=== PATIENT | male | born 1950 | race Caucasian/White ===

== ENCOUNTER → 2023-04-25 13:58 | Outpatient (REF) | payer MEDICARE, OTHER, SELFPAY | LOC: RAD 13:58 | PROVIDERS: ATTENDING PHYSICIAN Surgery Vascular Surgery; FAMILY PHYSICIAN Internal Medicine | DX: I73.9 Peripheral vascular disease, unspecified (principal) | CPT/HCPCS: 93922; 93925 ==

== ENCOUNTER 2023-05-24 06:22 | Day surgery (SDC) | payer MEDICARE, OTHER, SELFPAY ==
[2023-05-20 09:46] VITALS: BMI 32.8
--- NOTE | 2023-05-20 11:49 | PTCARENOTE ---
Sissy at 's office was notified of WBC 15.9 collected today.
[2023-05-24] VITALS (25 sets, daily range): BP systolic 130–186; BP diastolic 44–75
[2023-05-24 07:16] LABS: Glucose - Point of Care 73 mg/dl (70-99)
[2023-05-24] MEDS: NSS 324 ML IV (07:16)
--- NOTE | 2023-05-24 07:20 | W.SUR.PREOP ---
Pre-Operative Surgical Note
-
I have examined this patient prior to the performance of the scheduled procedure.
The patient's condition is unchanged from the time of the current History and
Physical and the patient is able to undergo the scheduled procedure.
--- NOTE | 2023-05-24 08:42 | OR.RPT ---
Operative Report
Operative Report
Date of Operation: 05/24/2023
Pre Op Diagnosis:
1.) Peripheral arterial occlusive disease
2.) Suspected high-grade right superficial femoral artery in-stent restenosis on surveillance duplex imaging
Post Op Diagnosis:
1.) Peripheral arterial occlusive disease
2.) Suspected high-grade right superficial femoral artery in-stent restenosis on surveillance duplex imaging
Procedure:
1.) Drug-coated balloon angioplasty to right superficial femoral artery in-stent restenosis (6 mm x 40 mm iNPACT DCB)
2.) Drug-coated balloon angioplasty to high-grade stenosis right below-knee popliteal artery (5 mm x 40 mm iNPACT DCB)
3.) Diagnostic aortobiiliac arteriogram
4.) Diagnostic right lower extremity arteriogram
5.) Ultrasound-guided percutaneous access to the left common femoral artery
6.) ProGlide closure to left common femoral artery access
Surgeon: Kelby Barrientos III, MD
Real Estate Agency Principal: Manolo Singletary MD PGY-1
Fluoroscopy:
14.5 minutes
299 mGy
81.15 DAP
Anesthesia: Sedation with local
Complications: None
Estimated Blood Loss: 10 cc
History and Indications for Procedure: 73-year-old male with known peripheral arterial occlusive disease. He had elevated velocities in the right superficial femoral artery stent on surveillance duplex imaging suggesting the presence of a
high-grade stenosis.
Procedure in Detail: Nick Muniz was correctly identified and placed supine on the operating table. After adequate induction of anesthesia the bilateral groins were prepped and draped in the usual sterile fashion. A timeout was performed with the
nursing and anesthesia staff confirming the patient's identity as well as the nature and laterality of the procedure.
The left common femoral artery was identified under ultrasound guidance. The artery was patent. The superior and inferior aspects of the femoral head were identified with radiographic guidance and marked at the skin level. The proposed puncture site
was infiltrated with local anesthesia. We saved a copy of the ultrasound image to the medical record. Under ultrasound guidance we accessed the left common femoral artery with a micropuncture needle and upsized to a 5 Fr sheath over a Z Planeson wire.
The wire and a Shepherds hook flush catheter were advanced into the distal abdominal aorta and a diagnostic aorto-biiliac arteriogram was performed:
AORTO-ILIAC ARTERIOGRAM:
Aorta: Patent with no stenosis identified
Right common iliac artery: Patent with no stenosis identified
Right external iliac artery: Patent with no stenosis identified
Left common iliac artery: Patent with no stenosis identified
Left external iliac artery: Patent with no stenosis identified
Under roadmap guidance using a Glidewire and the Shepherds hook catheter we selected the right common iliac artery and then the external iliac artery. A catheter was tracked up and over the aortic bifurcation and placed in the distal external iliac
artery. A diagnostic right lower extremity arteriogram was then performed which demonstrated the following:
RIGHT LOWER EXTREMITY:
Common femoral artery: Patent with no stenosis identified
Profunda femoral artery: Patent with no stenosis identified
Superficial femoral artery: Patent. Superficial femoral artery stent with diffuse moderate to high-grade in-stent stenosis identified. Mid/distal twenty-nine palms superficial femoral artery with scattered mild disease.
Popliteal artery: Patent above and behind the knee with mild scattered stenosis identified. Focal moderate to high-grade stenosis below the knee.
Tibial artery runoff was imaged to the distal calf. Anterior tibial artery patent with diffuse disease identified. Tibioperoneal trunk and peroneal artery patent. Posterior tibial artery occluded.
ENDOVASCULAR INTERVENTION: Systemic heparin was administered. Exchanged out for a 6 Fr 45 cm sheath over a Storq wire. Selected the right superficial femoral artery under roadmap guidance with Quickcross catheter and glidewire. The in-stent stenosis
was crossed with a Quickcross and Glidewire. Exchanged out for a Storq wire. A 6 mm x 40 mm drug coated angioplasty balloon was placed across the in-stent stenosis under roadmap guidance. The balloon was inflated to nominal pressure, held in place
for 3 minutes and then deflated and removed over the wire. Subsequent arteriogram demonstrated an excellent technical result with a widely patent stent and no significant residual stenosis identified.
We then focused my attention on the below-knee popliteal artery stenosis. The stenosis was crossed with a Quickcross and Glidewire. The wire exchanged out for a Storq wire. A 5 mm x 40 mm drug-coated angioplasty balloon was then placed across the
below-knee popliteal artery stenosis under roadmap guidance. The balloon was inflated to nominal pressure, held in place for 3 minutes and then deflated and removed over the wire. Subsequent arteriogram demonstrated an excellent technical result
with a widely patent below-knee popliteal artery and only a mild smooth residual stenosis identified.
Satisfied with this result we concluded the procedure. The sheath tip was pulled back into the left external iliac artery. Protamine was administered. A Pro-glide closure device was used to close the left femoral artery access.
The patient tolerated the procedure well and was taken to the recovery area in stable condition.
Attestation: I was present and responsible for the entire procedure.
Signed:
Kelby Barrientos III, MD
[facility]
[phone] (hreq)
--- NOTE | 2023-05-24 08:53 | W.IMMPOSTOP ---
Surgical Immed Post Op Note
-
Primary Surgeon: Kelby Barrientos III, MD
Assisting Surgeon: Manolo Singletary MD
Pre-op Diagnosis: RLE PAD
Post-op Diagnosis: RLE PAD
Procedure Performed: RLE angiogram, R SFA balloon angioplasty, R Below-knee popliteal artery balloon angioplasty
Anesthesia Type: Sedation
Specimen / Cultures: NA
Estimated Blood Loss: 2cc
Complications: NA
Operative Findings:
Pre-existing SFA stent with in-stent restenosis. 6Fr drug-coated balloon was used to expand the area of restenosis. Similarly, distal below knee pop with evidence of moderate-high grade disease. This area was also expanded with a drug-coated
balloon.
[2023-05-24 08:59] LABS: Glucose - Point of Care 78 mg/dl (70-99)
[2023-05-24] MEDS: NSS 1000 IV (10:23)
[2023-05-24 10:55] LABS: ACT-LR - POC 265 Seconds (116-155)
--- NOTE | 2023-05-24 12:38 | PTCARENOTE ---
Patients dressing showing a slight ooze on the bottom of dressing. NETWORK PROJECT MANAGER Ni Means made aware. Ni came by and inspected dressing. She decided to delay discharge by 1 hour. Dressing changed and reinforced with extra 4x4 sponge.
[2023-05-24 13:09] LABS: Glucose - Point of Care 151 mg/dl (70-99)
[2023-05-24] MEDS: NOVOLOG vial 1 UNITS SC (13:18)
[2023-05-24 13:52] LABS: Glucose - Point of Care 160 mg/dl (70-99)
== END 2023-05-24 14:00 | disposition home or self-care (01) ==
LOC: CATH 06:22
PROVIDERS: ATTENDING PHYSICIAN Surgery Vascular Surgery; FAMILY PHYSICIAN Internal Medicine
DX: I70.201 Unspecified atherosclerosis of native arteries of extremities, right leg (principal); Z95.820 Peripheral vascular angioplasty status with implants and grafts; T82.856A Stenosis of peripheral vascular stent, initial encounter; E11.9 Type 2 diabetes mellitus without complications; I10 Essential (primary) hypertension; E78.5 Hyperlipidemia, unspecified; E11.40 Type 2 diabetes mellitus with diabetic neuropathy, unspecified
CPT/HCPCS: 37224; 75625; 75716; 76937; 82962; C1760; C1769; C1894; C2623; Q9967

== ENCOUNTER → 2023-06-28 10:15 | Outpatient (REF) | payer MEDICARE, OTHER, SELFPAY | LOC: RAD 10:15 | PROVIDERS: ATTENDING PHYSICIAN Surgery Vascular Surgery; FAMILY PHYSICIAN Internal Medicine | DX: I73.9 Peripheral vascular disease, unspecified (principal) | CPT/HCPCS: 93922; 93925 ==

== ENCOUNTER → 2023-07-07 06:58 | Outpatient (REF) | payer MEDICARE, OTHER, SELFPAY ==
[2023-07-07 08:41] LABS: % Basophils 0.5 % (0-2); % Eosinophils 1.1 % (0-6); % Immature Granulocytes 0.2 % (0-0.5); % Monocytes 5.2 % (1.7-9.3); Absolute Basophils 0.1 10^3/uL (0-0.2); Absolute Eosinophils 0.2 10^3/uL (0-0.7); Absolute Lymphocytes 9.8 10^3/uL (1.2-3.4); Absolute Monocytes 0.8 10^3/uL (0.1-0.6); Absolute Neutrophils 3.8 10^3/uL (1.4-6.5); Hematocrit 34.8 % (39.0-52.0); Hemoglobin 11.4 g/dL (13.0-18.0); Mean Corp Hgb Conc. 32.8 g/dL (33.0-37.0); Mean Corpuscular Hgb 31.2 pg (27.0-31.0); Mean Corpuscular Volume 95.3 fL (80.0-94.0); Mean Platelet Volume 10.8 fL (7.4-10.4); Nucleated Red Blood Cells % 0 % (-); Platelet Count 133 10^3/uL (130-400); Red Blood Cell Count 3.65 10^6/uL (4.70-6.10); White Blood Cell Count 14.6 10^3/uL (4.8-10.8)
[2023-07-07 09:03] LABS: LDH 171 U/L (120-246)
== END ==
LOC: REG 06:58
PROVIDERS: ATTENDING PHYSICIAN Internal Medicine Hematology & Oncology; FAMILY PHYSICIAN Internal Medicine
DX: C91.10 Chronic lymphocytic leukemia of B-cell type not having achieved remission (principal); D63.8 Anemia in other chronic diseases classified elsewhere
CPT/HCPCS: 36415; 83615; 85025

== ENCOUNTER → 2023-07-26 14:28 | Outpatient (REF) | payer MEDICARE, OTHER, SELFPAY ==
[2023-07-26 16:46] LABS: % Basophils 0.4 % (0-2); % Eosinophils 1.5 % (0-6); % Immature Granulocytes 0.2 % (0-0.5); % Monocytes 4.6 % (1.7-9.3); % Neutrophils 33.3 % (42.2-75.2); Absolute Basophils 0.1 10^3/uL (0-0.2); Absolute Eosinophils 0.2 10^3/uL (0-0.7); Absolute Lymphocytes 7.7 10^3/uL (1.2-3.4); Absolute Monocytes 0.6 10^3/uL (0.1-0.6); Absolute Neutrophils 4.3 10^3/uL (1.4-6.5); Hematocrit 31.2 % (39.0-52.0); Hemoglobin 10.6 g/dL (13.0-18.0); Mean Corpuscular Hgb 30.8 pg (27.0-31.0); Mean Corpuscular Volume 90.7 fL (80.0-94.0); Nucleated Red Blood Cells % 0 % (-); Platelet Count 151 10^3/uL (130-400); Red Blood Cell Count 3.44 10^6/uL (4.70-6.10); Red Cell Dist. Width 13.8 % (11.5-14.5); Reticulocyte Count 1.2 % (0.4-2.8); White Blood Cell Count 12.8 10^3/uL (4.8-10.8)
[2023-07-26 16:55] LABS: Erythrocyte Sed Rate 20 mm/hour (0-20)
[2023-07-26 17:05] LABS: Iron 68 ug/dl (49-181); LDH 191 U/L (120-246)
[2023-07-26 17:14] LABS: Percent Saturation 21 % (20-50); Total Iron Binding Capacity 320 ug/dl (261-462)
[2023-07-26 17:41] LABS: Ferritin 12.8 ng/ml (17.9-464.0)
[2023-07-26 18:13] LABS: Folate > 20.0 ng/ml (2.76-20); Vitamin B12 534 pg/ml (239-931)
[2023-07-28 12:13] LABS: Erythropoietin (EPO) 16 mU/mL (4-27)
[2023-07-29 01:24] LABS: Haptoglobin 90 mg/dL (30-200)
== END ==
LOC: REG 14:28
PROVIDERS: ATTENDING PHYSICIAN Internal Medicine Hematology & Oncology; FAMILY PHYSICIAN Internal Medicine
DX: C91.10 Chronic lymphocytic leukemia of B-cell type not having achieved remission (principal); D51.9 Vitamin B12 deficiency anemia, unspecified
CPT/HCPCS: 36415; 82607; 82668; 82728; 82746; 82784; 83010; 83521; 83540; 83550; 83615; 84155; 84165; 85025; 85045; 85652; 86334; 86880

== ENCOUNTER → 2023-08-08 06:51 | Outpatient (REF) | payer MEDICARE, OTHER, SELFPAY ==
[2023-08-08 07:34] LABS: % Basophils 0.5 % (0-2); % Eosinophils 1.5 % (0-6); % Immature Granulocytes 0.7 % (0-0.5); % Monocytes 5.3 % (1.7-9.3); Absolute Basophils 0.1 10^3/uL (0-0.2); Absolute Eosinophils 0.2 10^3/uL (0-0.7); Absolute Immature Granulocytes 0.1 10^3/uL (0-0.05); Absolute Lymphocytes 8.1 10^3/uL (1.2-3.4); Absolute Monocytes 0.7 10^3/uL (0.1-0.6); Absolute Neutrophils 4.1 10^3/uL (1.4-6.5); Hemoglobin 11.3 g/dL (13.0-18.0); Mean Corp Hgb Conc. 33.2 g/dL (33.0-37.0); Mean Corpuscular Volume 93.4 fL (80.0-94.0); Mean Platelet Volume 10.2 fL (7.4-10.4); Nucleated Red Blood Cells % 0 % (-); Platelet Count 150 10^3/uL (130-400); Red Blood Cell Count 3.64 10^6/uL (4.70-6.10); Red Cell Dist. Width 13.8 % (11.5-14.5); White Blood Cell Count 13.2 10^3/uL (4.8-10.8)
[2023-08-08 07:58] LABS: NT-proBNP 1210 pg/ml
[2023-08-08 08:01] LABS: ALT (SGPT) 13 U/L (0-50); AST (SGOT) 23 U/L (17-59); Albumin 3.8 g/dl (3.5-5.0); Alkaline Phosphatase 70 U/L (38-126); Blood Urea Nitrogen 27 mg/dl (9-20); Calcium 9.6 mg/dl (8.4-10.2); Carbon Dioxide 27 mmol/L (22-30); Chloride 105 mmol/L (98-107); Glucose 61 mg/dl (70-99); HDL Cholesterol 43 mg/dl; LDL Cholesterol, Calculated 59 mg/dl; Potassium 4.2 mmol/L (3.5-5.1); Sodium 141 mmol/L (135-145); Total Bilirubin 0.6 mg/dl (0.2-1.3); Total Cholesterol 118 mg/dl (50-199); Total Protein 6.3 g/dl (6.3-8.2); Triglyceride 80 mg/dl (10-149); Very Low Density Lipoprotein 16 mg/dl (0-30); eGFR > 60.00
[2023-08-08 08:32] LABS: TSH 1.66 uIU/ml (0.47-4.68)
[2023-08-08 08:42] LABS: Microalbumin, Random Urine <0.6 mg/dl (0.6-1.7)
[2023-08-08 12:10] LABS: Glycohemoglobin (HgbA1c) 5.9 % (4.0-5.6)
[2023-08-09 12:59] LABS: PSA Total 0.1 ng/mL (0.0-4.0)
== END ==
LOC: REG 06:51
PROVIDERS: ATTENDING PHYSICIAN Internal Medicine Cardiovascular Disease; FAMILY PHYSICIAN Internal Medicine
DX: I10 Essential (primary) hypertension (principal); E78.5 Hyperlipidemia, unspecified; E11.9 Type 2 diabetes mellitus without complications; E10.21 Type 1 diabetes mellitus with diabetic nephropathy; I73.9 Peripheral vascular disease, unspecified; R53.83 Other fatigue; N40.0 Benign prostatic hyperplasia without lower urinary tract symptoms; I48.19 Other persistent atrial fibrillation
CPT/HCPCS: 36415; 80053; 80061; 82043; 83036; 83880; 84153; 84154; 84443; 85025

== ENCOUNTER → 2023-08-30 06:19 | Day surgery (SDC) | payer MEDICARE, OTHER, SELFPAY ==
[2023-08-30 07:21] LABS: Glucose - Point of Care 86 mg/dl (70-99)
== END ==
LOC: GI 06:19
PROVIDERS: ATTENDING PHYSICIAN Specialist
DX: Z12.11 Encounter for screening for malignant neoplasm of colon (principal); K63.5 Polyp of colon; K56.2 Volvulus; Z86.010 Personal history of colon polyps
CPT/HCPCS: 45385; 88305; 82962

== ENCOUNTER → 2023-10-13 15:23 | Outpatient (REF) | payer MEDICARE, OTHER, SELFPAY ==
[2023-10-13 16:40] LABS: Iron 62 ug/dl (49-181)
[2023-10-13 16:50] LABS: Percent Saturation 28 % (20-50); Total Iron Binding Capacity 214 ug/dl (261-462)
[2023-10-13 17:16] LABS: Ferritin 52.6 ng/ml (17.9-464.0)
[2023-10-13 17:28] LABS: % Basophils 0.3 % (0-2); % Eosinophils 0.9 % (0-6); % Immature Granulocytes 0.4 % (0-0.5); % Lymphocytes 51.4 % (20.5-51.1); % Monocytes 5.2 % (1.7-9.3); % Neutrophils 41.8 % (42.2-75.2); Absolute Basophils 0.1 10^3/uL (0-0.2); Absolute Eosinophils 0.1 10^3/uL (0-0.7); Absolute Immature Granulocytes 0.1 10^3/uL (0-0.05); Absolute Lymphocytes 7.6 10^3/uL (1.2-3.4); Absolute Monocytes 0.8 10^3/uL (0.1-0.6); Absolute Neutrophils 6.1 10^3/uL (1.4-6.5); Hematocrit 35.8 % (39.0-52.0); Hemoglobin 12.3 g/dL (13.0-18.0); Mean Corp Hgb Conc. 34.4 g/dL (33.0-37.0); Mean Corpuscular Hgb 31.4 pg (27.0-31.0); Mean Corpuscular Volume 91.3 fL (80.0-94.0); Mean Platelet Volume 10.5 fL (7.4-10.4); Nucleated Red Blood Cells % 0 % (-); Platelet Count 146 10^3/uL (130-400); Red Blood Cell Count 3.92 10^6/uL (4.70-6.10); Red Cell Dist. Width 14.8 % (11.5-14.5); White Blood Cell Count 14.7 10^3/uL (4.8-10.8)
== END ==
LOC: REG 15:23
PROVIDERS: ATTENDING PHYSICIAN Internal Medicine Hematology & Oncology; FAMILY PHYSICIAN Internal Medicine
DX: C91.10 Chronic lymphocytic leukemia of B-cell type not having achieved remission (principal); D51.9 Vitamin B12 deficiency anemia, unspecified
CPT/HCPCS: 36415; 82728; 83540; 83550; 85025

== ENCOUNTER 2023-11-08 08:26 | Inpatient (IN) | payer MEDICARE, OTHER, SELFPAY ==
[2023-11-08 08:59] VITALS: BP 173/65
[2023-11-08 09:09] LABS: Glucose - Point of Care 78 mg/dl (70-99)
--- NOTE | 2023-11-08 09:59 | W.PN.CARDCBS ---
Addendum entered and electronically signed by Daniela Mbcride MD 11/08/23 10:50:
I saw and examined the patient.
The Embossing Machine Tender's note was reviewed and I agree with the note.
Comment: Patient seen and examined by me. Well-known to me. Presents for dofetilide loading in the setting of recurrent atrial fibrillation. Dofetilide started. Follow EKGs and follow-up telemetry
May need cardioversion at the end of this day. Continue oral anticoagulation.
Patient appears to be volume overloaded. proBNP level ordered and patient will be diuresed with IV diuretic. Exam consistent with increased volume with lower extremity edema and JVD.
Patient with covered 'leg blisters '. Wound service consulted.
Follow electrolytes.
EKGs reviewed. Discussed with patient. All questions answered.
Original Note:
Today's Communication / Plan
-
Initiate Tikosyn
Check echo
IV Lasix
Wound care
Continue Xarelto
Impression / Plan
-
*please see office note 11/04/23 to be used and H&P
Primary cake decorator: Daniela Mcbride MD
Primary veterinarian small animal: Raffi Mcbride MD
Assessment:
Presentation for Tikosyn loading
Lower extremity edema, concern for acute heart failure with preserved ejection fraction
Persistent atrial fibrillation and atrial flutter
Atrial flutter ablation 12/2022
redo PVI 06/2022
SVT ablation 09/2020
History of PVI 05/2020
Chronic anticoagulation with Xarelto
History of bradycardia with amiodarone
Baseline bradycardia
History of bioprosthetic AVR 2018
CAD, 90% PDA lesion, medically managed
Hyperlipidemia
Hypertension
Type 2 diabetes
History of CLL
History of osteomyelitis
History of PAD with right lower extremity angioplasty and stent 2021
Right great toe transmetatarsal amputation
Echocardiogram: 05/12/2022: Small LV size, normal systolic function, EF 55 to 60%, mild LVH, mild MR, #27 bioprosthetic aortic valve 26/11, no AI
Plan:
Patient presents for Tikosyn loading for symptomatic persistent atrial fibrillation.
Awaiting labs and EKG. Baseline QTc from office 11/04/2023 was 427 msec
Currently in atrial fibrillation with heart rates in 50s. Telemetry personally reviewed. Not presently on any AV brady blocking agents.
Missed 1 dose of Xarelto 10/25/2023, reviewed with EP, okay to proceed with Tikosyn loading.
If remains in A-fib on 11/10/2023, will plan for cardioversion that day.
Patient with recent weight gain and lower extremity edema on Lasix 20 mg p.o. daily. Dose increased to 40 mg x 3 days at office visit on 11/04/2023 with some improvement in symptoms. He continues to have lower extremity edema on exam. Will check
proBNP. Likely will require IV Lasix and up titration of outpatient oral Lasix. Will check echo, last from 2022 as above. Will have wound care consult for lower extremity blisters/weeping.
Discussed with nursing.
Progress Note - Special Procedures Nurse
Subjective
Date of Service: November 08, 2023
No current complaints
Objective
Vital Signs and I&O:
Vital Signs
Pulse BP
53 173/65
11/08/23 09:30 11/08/23 08:59
Vital Signs
Pulse BP
53 173/65
11/08/23 09:30 11/08/23 08:59
Physical Exam
Physical Exam
GEN: No distress, awake, Ox3
HEENT: supple, anicteric, mmm
LUNGS: CTA, no wheezes/rales
CV: irreg, irreg, dilan, S1/S2, no murmur
ABD: soft, BS+, NT/ND
EXT: 2+ B/L LE edema
NEURO: Gross non-focal
SKIN: No rash
[2023-11-08 10:22] LABS: Hematocrit 34.2 % (39.0-52.0); Hemoglobin 11.6 g/dL (13.0-18.0); Mean Corp Hgb Conc. 33.9 g/dL (33.0-37.0); Mean Corpuscular Hgb 31.7 pg (27.0-31.0); Mean Corpuscular Volume 93.4 fL (80.0-94.0); Mean Platelet Volume 10.1 fL (7.4-10.4); Platelet Count 151 10^3/uL (130-400); Red Blood Cell Count 3.66 10^6/uL (4.70-6.10); Red Cell Dist. Width 14.8 % (11.5-14.5); White Blood Cell Count 14.5 10^3/uL (4.8-10.8)
[2023-11-08 10:35] LABS: Blood Urea Nitrogen 27 mg/dl (9-20); Calcium 9.8 mg/dl (8.4-10.2); Carbon Dioxide 28 mmol/L (22-30); Chloride 104 mmol/L (98-107); Glucose 64 mg/dl (70-99); Magnesium 1.8 mg/dl (1.6-2.3); Potassium 4.3 mmol/L (3.5-5.1); Sodium 142 mmol/L (135-145); eGFR > 60.00
--- NOTE | 2023-11-08 10:42 | W.CARD.TIKOS ---
Initiate Tikosyn
-
I verify that the patient has not taken any verapamil (Isoptin/Calan), ketoconazole (Nizoral), cimetidine (Tagamet), trimethoprim (Trimpex), trimethoprim/sulfamethoxazole (Bactrim), megesterol (Megace), prochlorperazine (Compazine),
hydrochlorothiazide (HCTZ), dolutegravir (Tivicay) or any Class I or Class III anti-arrhythmic within the last three days
AND
I verify that the patient has not taken amiodarone within the last THREE months, or that the patient's amiodarone plasma concentration is <0.3 mcg/mL.
Creatinine 0.8 mg/dL (0.7-1.3) 11/08/23 10:01
Does patient have a Ventricular Conduction Abnormality: Yes
I have assessed the baseline QTc interval (using QT for heart rate less than 60 bpm) and deemed the patient is appropriate for Dofetilide therapy. I understand that Tikosyn is contraindicated if the QTc is >440msec (500msec in patients with
ventricular conduction abnormalities).
Baseline QTc (in msec): 416
QTc interval is greater than 440msec without conduction abnormality OR greater than 500msec with a conduction abnormality, but acceptable to proceed per Cardiology attending.
Reason for Administration with Prolonged QTc: Bundle Branch Block
Ordering Physician: Daniela Mcbride
[2023-11-08 10:56] LABS: % Basophils 0.4 % (0-2); % Immature Granulocytes 0.2 % (0-0.5); % Lymphocytes 53.4 % (20.5-51.1); % Monocytes 5.4 % (1.7-9.3); % Neutrophils 39.6 % (42.2-75.2); Absolute Basophils 0.1 10^3/uL (0-0.2); Absolute Eosinophils 0.2 10^3/uL (0-0.7); Absolute Lymphocytes 7.8 10^3/uL (1.2-3.4); Absolute Monocytes 0.8 10^3/uL (0.1-0.6); Absolute Neutrophils 5.7 10^3/uL (1.4-6.5); Nucleated Red Blood Cells % 0 % (-)
[2023-11-08 11:04] VITALS: BMI 32.3
[2023-11-08 11:19] LABS: NT-proBNP 2830 pg/ml
[2023-11-08 11:22] LABS: Glucose - Point of Care 50 mg/dl (70-99)
[2023-11-08] MEDS: TIKOSYN 500 MCG PO ×2 (11:23→23:03)
[2023-11-08 11:40] LABS: TSH Reflex To Free T4 2.46 uIU/ml (0.47-4.68)
[2023-11-08 11:44] LABS: Glucose - Point of Care 65 mg/dl (70-99)
[2023-11-08 12:33] VITALS: BMI 32.3
[2023-11-08 12:55] VITALS: BP 153/63
[2023-11-08] MEDS: LASIX 40 MG IV (12:55)
[2023-11-08 13:40] LABS: Glucose - Point of Care 126 mg/dl (70-99)
--- NOTE | 2023-11-08 14:44 | CM ---
Reviewed chart. Met with Mr. Parada to review discharge plans. He states prior to admission he resides with his spouse in a three story home with a full flight of steps to get to the main area. He states he has a full flight of stairs to get to
bedroom/ full bathroom. He states he has a powder room on the first floor. He states prior to admission he was independent with ambulation and adls. He states he does not have any DME in the home. He states he has a prescription plan with Merle "[facility]ie[facility]ques and uses [facility]. Telephone call to Merle Mohan to check on co-pay for Dofetilide 500 mcg bid. His co-pay for one month would be $84.35 and for a 90 day supply his co-pay would be $103.05. He will need a three day script to go to [facility] for a supply to go home with him. Will check with his pharmacy if they have Dofetilide in stock. Medical work-up in progress. The discharge plan is to return home with his spouse when medically stable.
[2023-11-08 15:50] VITALS: BP 162/65
[2023-11-08 15:56] LABS: Glucose - Point of Care 123 mg/dl (70-99)
[2023-11-08 17:56] LABS: Glucose - Point of Care 110 mg/dl (70-99)
[2023-11-08] MEDS: GLUCOPHAGE 1000 MG PO (18:00)
[2023-11-08] MEDS: LANTUS 0.25 UNITS SC (18:40)
--- NOTE | 2023-11-08 19:44 | PTCARENOTE ---
Blood glucose 55. Pt states that he felt a little 'shakey'. Glycemic protocol followed. See labs.
[2023-11-08 19:48] VITALS: BP 166/67
[2023-11-08] MEDS: COZAAR 50 MG PO (21:03)
[2023-11-08] MEDS: COSOPT EYE DROPS 1 DROP BOTH EYES (21:04)
[2023-11-08] MEDS: LIPITOR 40 MG PO (21:04)
[2023-11-08] MEDS: COLACE 300 MG PO (21:04)
[2023-11-08] MEDS: ASPIR LOW (ENTERIC COATED) 81 MG PO (21:04)
--- NOTE | 2023-11-08 21:35 | PTCARENOTE ---
Pt aaox3, cooperativve. HR:40-50s on monitor, afib and dipped to 38. Pt asymptomatic. made aware. EKG obtained as ordered. Results sent through TT and previous EKG sent through TT to . Instructed to continue to give 2300 tikosyn
dose.
[2023-11-08 22:16] LABS: Glucose - Point of Care 120 mg/dl (70-99)
[2023-11-08 22:55] VITALS: BP 138/59
[2023-11-08] MEDS: MELATONIN 10 MG PO (23:03)
[2023-11-09 03:13] LABS: Glucose - Point of Care 105 mg/dl (70-99)
[2023-11-09 03:16] VITALS: BMI 31.4
[2023-11-09 04:07] LABS: Blood Urea Nitrogen 31 mg/dl (9-20); Calcium 9.2 mg/dl (8.4-10.2); Carbon Dioxide 29 mmol/L (22-30); Chloride 101 mmol/L (98-107); Estimated Creatinine Clearance 108 ml/min; Glucose 99 mg/dl (70-99); Potassium 4.2 mmol/L (3.5-5.1); Sodium 140 mmol/L (135-145); eGFR > 60.00
[2023-11-09 08:11] VITALS: BP 145/73
[2023-11-09] MEDS: XARELTO 20 MG PO (08:22)
[2023-11-09] MEDS: COZAAR 50 MG PO ×2 (08:22→20:09)
[2023-11-09] MEDS: COSOPT EYE DROPS 1 DROP BOTH EYES ×2 (08:23→20:10)
[2023-11-09] MEDS: LANTUS 0.4 UNITS SC (08:23)
[2023-11-09] MEDS: GLUCOPHAGE 1000 MG PO ×2 (08:23→17:36)
[2023-11-09] MEDS: THERAGRAN 1 TABLET PO (08:23)
[2023-11-09] MEDS: LASIX 40 MG IV (08:24)
[2023-11-09] MEDS: LINZESS 290 MCG PO (08:24)
[2023-11-09 09:08] VITALS: BMI 31.4
--- NOTE | 2023-11-09 09:18 | W.PN.CARDCBS ---
Addendum entered and electronically signed by Efrain Haynes MD 11/09/23 11:36:
I saw and examined the patient.
The Fuse Coiler's note was reviewed and I agree with the note.
Comment:
GEN: No distress, awake, Ox3
HEENT: supple, anicteric, mmm
LUNGS: CTA, no wheezes/rales
CV: Irreg, S1/S2, 1/6 syst LSB, no gallop
ABD: soft, BS+, NT/ND
EXT: No edema
NEURO: Gross non-focal
SKIN: No rash
Plan:
QTc remained stable at 446 ms. Continue Tikosyn 500 mcg p.o. every 12. Continue Xarelto.
Watch for bradycardia. For cardioversion in a.m. if remains in A-fib.
Continue diuresis with IV Lasix.
Original Note:
Today's Communication / Plan
-
reviewed with EP, continue tikosyn 500mcg Q12H
follow QTc
continue xarelto
for CV in AM if remains in afib
IV lasix
Impression / Plan
-
*please see office note 11/04/23 to be used and H&P
Primary log manager: Daniela Mcbride MD
Primary interventional technologist: Raffi Mcbride MD
Assessment:
Presentation for Tikosyn loading
Lower extremity edema, concern for acute heart failure with preserved ejection fraction
Persistent atrial fibrillation and atrial flutter
Atrial flutter ablation 12/2022
redo PVI 06/2022
SVT ablation 09/2020
History of PVI 05/2020
Chronic anticoagulation with Xarelto
History of bradycardia with amiodarone
Baseline bradycardia
History of bioprosthetic AVR 2018
CAD, 90% PDA lesion, medically managed
Hyperlipidemia
Hypertension
Type 2 diabetes
History of CLL
History of osteomyelitis
History of PAD with right lower extremity angioplasty and stent 2021
Right great toe transmetatarsal amputation
Echocardiogram: 05/12/2022: Small LV size, normal systolic function, EF 55 to 60%, mild LVH, mild MR, #27 bioprosthetic aortic valve 26/11, no AI
Plan:
-Patient presents for Tikosyn loading for symptomatic persistent atrial fibrillation.
-Currently on Tikosyn 500 mcg every 12 hours. Noted on review of telemetry overnight to have heart rates mostly in the 40s to 50s in afib with frequent pauses all less than 2.5 seconds. Patient asymptomatic. QTc relatively stable at 446 ms.
reviewed with EP, plan to continue 500mcg for now.
-Not on beta-johan/calcium channel johan
-Missed 1 dose of Xarelto 10/25/2023, reviewed with EP, okay to proceed with Tikosyn loading.
-If remains in A-fib on 11/10/2023, will plan for cardioversion in AM. To consider BREE given above
-echo with results as above, EF preserved
-with 6 pound weight loss overnight. continue IV lasix. Cr stable. will need increased dose of po lasix upon DC, was on 20mg po daily
-continue wound care/tubigrips
Progress Note - Medicare Contact Specialist
Subjective
Date of Service: November 09, 2023
Feeling well. Reports significant weight loss with IV Lasix overnight
Objective
Labs:
11/08/23 10:01
11/09/23 03:13
Labs
Hgb 11.6 g/dL (13.0-18.0) L 11/08/23 10:01
Hct 34.2 % (39.0-52.0) L 11/08/23 10:01
Plt Count 151 10^3/uL (130-400) 11/08/23 10:01
Sodium 140 mmol/L (135-145) 11/09/23 03:13
Potassium 4.2 mmol/L (3.5-5.1) 11/09/23 03:13
BUN 31 mg/dl (9-20) H 11/09/23 03:13
Creatinine 0.8 mg/dL (0.7-1.3) 11/09/23 03:13
Glucose 99 mg/dl (70-99) 11/09/23 03:13
Vital Signs and I&O:
Vital Signs
Temp Pulse Resp BP Pulse Ox
97.5 F 55 20 145/73 99
11/09/23 08:08 11/09/23 09:00 11/09/23 08:08 11/09/23 08:24 11/09/23 08:08
Vital Signs
Temp Pulse Resp BP Pulse Ox
97.5 F 55 20 145/73 99
11/09/23 08:08 11/09/23 09:00 11/09/23 08:08 11/09/23 08:24 11/09/23 08:08
Physical Exam
Physical Exam
GEN: No distress, awake, alert, oriented x3
HEENT: supple, anicteric, mmm, eomi
LUNGS: CTA B/L, no wheezes/rales
CV: Irreg and dilan, S1/S2, no murmur
ABD: soft, BS+, NT/ND
EXT: No cyanosis, clubbing. 3+ edema of B/L LE.
NEURO: Gross non-focal
SKIN: Warm, pink, dry. No rash. B/L LE wounds with dressings c/d/i
--- NOTE | 2023-11-09 09:25 | PTCARENOTE ---
Rec'd pt this shift awake and alert. Pt ambulating in room without difficulty. Pt afib on monitor. AM meds given. See worklist for VS/I and O and assessments.
[2023-11-09] MEDS: TIKOSYN 500 MCG PO ×2 (09:57→21:09)
[2023-11-09 11:30] VITALS: BP 152/64
[2023-11-09 12:30] LABS: Glucose - Point of Care 200 mg/dl (70-99)
[2023-11-09] MEDS: NOVOLOG FLEXPEN-MODERATE RESISTANCE 3 UNITS SC (12:55)
--- NOTE | 2023-11-09 14:07 | CM ---
Offered patient a Good Rx coupon for Dofetilide at his [facility]. Patient is agreeable to cost. I will follow up with the [facility] to confirm availability. Patient is independent of ADLS, lives with his in a 3 [address], 12 HALLE, 0 DME.
CM to follow
--- NOTE | 2023-11-09 14:38 | WOUNDNOTE ---
WO RN note: Patient admitted for Tikosyn loading
See H&P for complete history.
PMH: Afib/Aflutter, SVT ablation, anticoagulation with Xerelto, HTN, hyperlipidemia, DM 2, Hx of PAD with right LE angioplasty and stent placement. Concern for CHF this admission.
Wound Location and type/assessment: Patient admitted with LE edema and open blisters. Patient reports increase LE swelling over the past few weeks. He opened all blisters with 'sterile needle' and all wound beds are pink. Patient follows with
[facility]. Most recent DONAVAN/TBI from 06/28 RIGHT: DONAVAN 1.12/ TBI .53. LEFT: DONAVAN .99 TBI.52. Compression has already been ordered. Patient ambulates in room. Heels and sacrum intact.
Appetite: Good
Pressure redistribution devices in place: Versa Care Accumax
Plan: Recommended patient not open blisters and to leave skin intact if blisters open/drain. Patient prefers band-aids and silicone border foam to open areas. Suggested and added to discharge that adaptic or Xeroform could be use over open areas as
well. Patient given contact info for [facility] if wounds do not progress toward healing. Patient states under standing of all instructions. LINDA Perez given update. Will confirm orders with PA.
Updated care plan and will follow as needed.
Note to case management of equipment requested for discharge:
[2023-11-09 15:07] VITALS: BP 125/57
--- NOTE | 2023-11-09 17:03 | PTCARENOTE ---
Pt converted to SB at 1655. HR 55-60.
[2023-11-09 17:05] LABS: Glucose - Point of Care 142 mg/dl (70-99)
[2023-11-09] MEDS: NOVOLOG FLEXPEN-MODERATE RESISTANCE SC (17:17)
[2023-11-09 18:36] VITALS: BP 138/65
[2023-11-09] MEDS: NON-FORMULARY ITEM 25 UNIT SC (19:13)
[2023-11-09] MEDS: ASPIR LOW (ENTERIC COATED) 81 MG PO (21:09)
[2023-11-09] MEDS: MELATONIN 10 MG PO (21:09)
[2023-11-09] MEDS: COLACE 300 MG PO (21:09)
[2023-11-09] MEDS: LIPITOR 40 MG PO (21:10)
[2023-11-09 22:27] VITALS: BP 124/47
[2023-11-09 22:30] LABS: Glucose - Point of Care 132 mg/dl (70-99)
--- NOTE | 2023-11-10 01:33 | PTCARENOTE ---
Pt SB with HR mid 50s and multiple pauses 1.99-2.02 sec. HR dipped to 31 BPM for short time. BP 124/47. Pt asymptomatic
[2023-11-10 03:44] VITALS: BP 115/39
[2023-11-10 04:42] VITALS: BMI 31.1
[2023-11-10 05:17] LABS: Blood Urea Nitrogen 37 mg/dl (9-20); Calcium 9.3 mg/dl (8.4-10.2); Carbon Dioxide 27 mmol/L (22-30); Chloride 99 mmol/L (98-107); Estimated Creatinine Clearance 107 ml/min; Glucose 132 mg/dl (70-99); Potassium 4.1 mmol/L (3.5-5.1); Sodium 137 mmol/L (135-145); eGFR > 60.00
[2023-11-10 07:03] VITALS: BP 134/61
[2023-11-10] MEDS: GLUCOPHAGE 1000 MG PO (07:54)
[2023-11-10] MEDS: COSOPT EYE DROPS 1 DROP BOTH EYES (07:54)
[2023-11-10] MEDS: THERAGRAN 1 TABLET PO (07:55)
[2023-11-10] MEDS: LASIX 40 MG IV (07:55)
[2023-11-10] MEDS: COZAAR 50 MG PO (07:55)
[2023-11-10] MEDS: FLUSH (NSS) 1 FLUSH IV (07:57)
[2023-11-10] MEDS: NON-FORMULARY ITEM 1 UNIT SC (07:59)
[2023-11-10 08:00] VITALS: BP 150/53
[2023-11-10 08:10] LABS: Glucose - Point of Care 160 mg/dl (70-99)
[2023-11-10] MEDS: TIKOSYN 500 MCG PO (08:10)
[2023-11-10] MEDS: NOVOLOG FLEXPEN-MODERATE RESISTANCE 1 UNITS SC (08:11)
[2023-11-10] MEDS: XARELTO 20 MG PO (08:12)
--- NOTE | 2023-11-10 08:16 | W.PN.CARDCBS ---
Addendum entered and electronically signed by Donis Frazier MD 11/10/23 10:06:
Attending addendum: Patient seen and examined. MANUAL EQUIPMENT MECHANIC note reviewed and findings confirmed by me. ECG has been reviewed from last night. He received 5th dose of Tikosyn this am. Hopefully discharged later this morning.
Addendum entered and electronically signed by MARY LOU Santo 11/10/23 09:13:
Dictation # [id number]
Original Note:
Today's Communication / Plan
-
-converted to sinus rhythm yesterday 11/09/23 at 1644
5th dose Tikosyn today, as long as QTc remains stable on EKG, okay for discharge later today
-continue Xarelto
-LE edema improved and wt down 9lbs - change to oral Lasix. Will increase outpt dose to 40 mg daily and repeat BMP 1 week
Impression / Plan
-
*please see office note 11/04/23 to be used and H&P
Primary special education educational assistant: Daniela Mcbride MD
Primary cellophane bath mixer: Raffi Mcbride MD
Assessment:
Presentation for Tikosyn loading
Lower extremity edema, concern for acute heart failure with preserved ejection fraction
Persistent atrial fibrillation and atrial flutter
Atrial flutter ablation 12/2022
redo PVI 06/2022
SVT ablation 09/2020
History of PVI 05/2020
Chronic anticoagulation with Xarelto
History of bradycardia with amiodarone
Baseline bradycardia
History of bioprosthetic AVR 2018
CAD, 90% PDA lesion, medically managed
Hyperlipidemia
Hypertension
Type 2 diabetes
History of CLL
History of osteomyelitis
History of PAD with right lower extremity angioplasty and stent 2021
Right great toe transmetatarsal amputation
LE edema with blisters, weeping
Echocardiogram: 05/12/2022: Small LV size, normal systolic function, EF 55 to 60%, mild LVH, mild MR, #27 bioprosthetic aortic valve 26/11, no AI
EKG 11/09/232309, personally reviewed by me: SB with first degree AVB, iRBBB
Plan:
-Patient presented 11/08/23 for Tikosyn loading for symptomatic persistent atrial fibrillation.
-converted to NSR 11/09/23 at 1655 and has maintained sinus rhythm. Review of telemetry shows SR 50s-60s. QTc 478msec on EKG 11/09/232309.
-cancel CV for today since chemically converted
-due for 5th dose Tikosyn this morning (11/10/23). Check EKG 2 hrs post dose. As long as QTc stable, okay to discharge later today.
-continue anticoagulation with Xarelto
-EKG personally reviewed by me 11/09/232309: SB with first degree AVB, iRBBB
-Not on beta-johan/calcium channel johan
-Missed 1 dose of Xarelto 10/25/2023, reviewed with EP, okay to proceed with Tikosyn loading.
-echo with results as above, EF preserved
-weight loss of 3 pounds overnight, wt down 9 lbs since admission with improvement in LE edema. Can switch to oral Lasix, will increase outpt dose to 40 mg daily (was on 20 mg daily prior to admission). Cr, K stable, check BMP one week after
discharge.
-appreciate wound care consult - continue wound care/tubigrips
Progress Note - Cdl Instructor
Subjective
Date of Service: November 10, 2023
converted to sinus rhythm 11/09/23 at 1655 and has maintained SR overnight
feels well, no palpitations, lightheadedness, CP, SOB. LE Edema improved
wt down 9lbs since admission
due for 5th dose Tikosyn this morning
Objective
Labs:
11/08/23 10:01
11/10/23 03:54
Labs
Hgb 11.6 g/dL (13.0-18.0) L 11/08/23 10:01
Hct 34.2 % (39.0-52.0) L 11/08/23 10:01
Plt Count 151 10^3/uL (130-400) 11/08/23 10:01
Sodium 137 mmol/L (135-145) 11/10/23 03:54
Potassium 4.1 mmol/L (3.5-5.1) 11/10/23 03:54
BUN 37 mg/dl (9-20) H 11/10/23 03:54
Creatinine 0.8 mg/dL (0.7-1.3) 11/10/23 03:54
Glucose 132 mg/dl (70-99) H 11/10/23 03:54
Vital Signs and I&O:
Vital Signs
Temp Pulse Resp BP Pulse Ox
98.4 F 58 20 115/39 95
11/10/23 07:01 11/10/23 04:00 11/10/23 07:01 11/10/23 03:44 11/10/23 07:01
Vital Signs
Temp Pulse Resp BP Pulse Ox
98.4 F 58 20 115/39 95
11/10/23 07:01 11/10/23 04:00 11/10/23 07:01 11/10/23 03:44 11/10/23 07:01
Intake & Output
11/08/23 11/09/23 11/10/23 11/11/23
06:59 06:59 06:59 06:59
Intake Total 0 / 1680
Balance 1680 / 1680
Physical Exam
Physical Exam
GEN: No distress, awake, Ox3
HEENT: supple, anicteric, mmm
LUNGS: CTA, no wheezes/rales
CV: Reg, S1/S2, no murmur
ABD: soft, BS+, NT/ND
EXT: legs wrapped with tubigrip, no edema
NEURO: Gross non-focal
SKIN: No rash
--- NOTE | 2023-11-10 08:45 | W.DS.TRANS ---
DC Summary - [facility]
-
Discharge Instructions:
Sleep Apnea Risk Low
Discharge Diagnosis/Procedures afib, tikosyn load, CHF
Diet Low Cholesterol,2 Gram Sodium,Restrict fluids to
48 oz
Activity As tolerated
Driving Restrictions No driving for 24 hours
Bathing Restrictions None
Blood Work BMP in 1 week
Specialty Instructions Weigh Daily
Instructions: *DCA Heart Failure Instructions
Stand-Alone Forms:
Changes to Home Medications: Yes
Discharge Medications:
DC Medications w/original date entered in [facility]
dorzolamide 22.3 mg-timolol 6.8 mg/mL eye drops 1 drp BOTH EYES Q12 Eye condition 04/24/18
losartan 50 mg tablet 50 mg PO BID Blood pressure 08/19/20
multivitamin with folic acid 400 mcg tablet (Tab-A-Michael) 1 tab PO DAILY Supplement 06/09/21
metformin 1,000 mg tablet 1,000 mg PO BID Diabetes ##0 06/13/21
rivaroxaban 20 mg tablet (Xarelto) 20 mg PO DAILY Blood clot prevention/tx ##0 06/13/21
linaclotide 290 mcg capsule (Linzess) 290 mcg PO DAILY 10/28/21
aspirin 81 mg tablet,delayed release 81 mg PO HS Blood Clot Prevention/Tx 06/07/22
cyclosporine 0.05 % eye drops in a dropperette (Restasis) 1 drp BOTH EYES Q12H Eye Condition 11/25/22
atorvastatin 40 mg tablet 40 mg PO HS High Cholesterol 05/18/23
melatonin 10 mg tablet 10 mg PO HS Sleep 05/18/23
docusate sodium 100 mg capsule (Colace) 300 mg PO HS Constipation 11/08/23
insulin glargine 100 unit/mL (3 mL) subcutaneous pen (Basaglar KwikPen U-100 Insulin) 25 unit SC QPM Diabetes 11/08/23
insulin glargine 100 unit/mL (3 mL) subcutaneous pen (Basaglar KwikPen U-100 Insulin) 40 unit SC DAILY Diabetes 11/08/23
dofetilide 500 mcg capsule 500 mcg PO Q12H #60 caps 11/10/23
furosemide 40 mg tablet (Lasix) 40 mg PO DAILY #30 tabs 11/10/23
Home Medication Changes
Lasix dose increased
Tikosyn new
Pending Results: No
[2023-11-10] MEDS: LINZESS 290 MCG PO (10:00)
--- NOTE | 2023-11-10 12:50 | PTCARENOTE ---
Pt received this am alert and oriented. Deines any pain, sob or lightheadedness. Pt given 5th dose of Tikosyn this am. 2 Hr post ecg completed as ordered. Pt discharged to home with his . Discharge instructions given and reviewed with good
understanding.
== END 2023-11-10 11:52 | disposition home or self-care (01) | DRG 308 ==
LOC: IVU 08:26
PROVIDERS: Nurse Practitioner; ADMITTING PHYSICIAN Internal Medicine Cardiovascular Disease
DX: I48.92 Unspecified atrial flutter (principal); I50.31 Acute diastolic (congestive) heart failure; I11.0 Hypertensive heart disease with heart failure; I48.19 Other persistent atrial fibrillation; R53.83 Other fatigue; R14.0 Abdominal distension (gaseous); Z79.01 Long term (current) use of anticoagulants
CPT/HCPCS: 80048; 82962; 83735; 83880; 84443; 85025; 93005; 93306

== ENCOUNTER → 2023-11-16 07:13 | Outpatient (REF) | payer MEDICARE, OTHER, SELFPAY ==
[2023-11-16 08:24] LABS: Blood Urea Nitrogen 26 mg/dl (9-20); Calcium 9.5 mg/dl (8.4-10.2); Carbon Dioxide 28 mmol/L (22-30); Chloride 104 mmol/L (98-107); Glucose 91 mg/dl (70-99); Potassium 4.4 mmol/L (3.5-5.1); Sodium 141 mmol/L (135-145); eGFR > 60.00
== END ==
LOC: REG 07:13
PROVIDERS: ATTENDING PHYSICIAN Internal Medicine Cardiovascular Disease; FAMILY PHYSICIAN Internal Medicine
DX: I50.32 Chronic diastolic (congestive) heart failure (principal)
CPT/HCPCS: 36415; 80048

== ENCOUNTER 2023-12-18 23:46 | Emergency (ER) | payer MEDICARE, OTHER, SELFPAY ==
[2023-12-18 23:57] VITALS: BP 136/112
--- NOTE | 2023-12-19 01:09 | ED.GENMED ---
History of Present Illness
General
Chief Complaint: Nose Bleed
Time Seen by Provider: 12/19/23 01:09
History of Present Illness
History of Present Illness:
TIME OF INITIAL ENCOUNTER: 1 AM
HPI: The patient has been having left-sided nosebleed that started 3 hours ago. He is on aspirin and Xarelto. Just prior to my evaluation at 1 AM, the bleeding has stopped. He maintains himself on Xarelto and was recently on Tikosyn but did not
have to have a recent cardioversion.
EXAM:
GENERAL: Well appearing in no distress
HEENT: Some dried blood noted along the left nasal septum with no active bleeding
NEUROLOGIC: Excellent strength all extremities, no coordination deficits
PSYCHIATRIC: Appropriate mental status, normal insight and judgement
EXTREMITIES: Nontender, no edema, moves all extremities equally
SKIN: No rash, no lesions
NUMBER AND COMPLEXITY OF PROBLEMS ADDRESSED AT THE ENCOUNTER
� Chronic conditions affecting care: Atrial fibrillation on Xarelto aortic stenosis, high blood pressure, hyperlipidemia, IDDM
� Acute Exacerbation and/or Progression of Chronic Illness: This is an acute problem
� Differential Diagnosis includes: Anterior nosebleed, posterior nosebleed, coagulopathy
AMOUNT AND/OR COMPLEXITY OF DATA TO BE REVIEWED AND ANALYZED
� I performed an independent evaluation of and my interpretation is:
EKG:
CT:
X-rays:
Laboratory Studies:
Other:
� Review of other/old records: CBC from 1 month ago showed hemoglobin 11.6 and low normal platelet
� Clinical information was obtained by an independent historian: I spoke to the at bedside
� Prescriptions/Medications Considered but not given:
� Further testing considered but not performed:
RISK OF COMPLICATIONS AND/OR MORBIDITY OR MORTALITY OF PATIENT MANAGEMENT
� Social determinants of health affecting care: Lives at home
� Discussion with other providers:
� Escalation of care including admission/observation vs risk of discharge considered: I used Dre-Synephrine soaked cotton placed in the left nostril, then removed then placed silver nitrate cauterization.
ANY OTHER UPDATES:
2:15 AM: No further bleeding after treatment
Past History
Past History
ED Past Medical History: HTN, Hypercholesterolemia, NIDDM, Other (Aortic stenosis) and Other (Cataracts and glaucoma)
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
Social History
Tobacco: Non-smoker
Alcohol: None
Drug: None
Personal:
Living: with family
Employment: Employed
Phy Exam
Physical Exam
Physical Exam:
See HPI
Course
Orders/Labs/Results
Orders:
Orders
12/19/23 01:14
Phenylephrine 0.5% Regular Spr [Dre-Synephrine 0.5% Nasal [place]] 1 spray .ROUTE .[facility]
12/19/23 01:17
Phenylephrine 0.5% Regular Spr [Dre-Synephrine 0.5% Nasal [place]] 2 spray NASAL NOW STA
Vital Signs
Initial and Last Documented VS:
Initial Vital Signs
Temp Pulse Resp BP Pulse Ox
98.8 F 63 20 136/112 97
12/18/23 23:57 12/18/23 23:57 12/18/23 23:57 12/18/23 23:57 12/18/23 23:57
Last Documented Vital Signs
Temp Pulse Resp BP Pulse Ox
98.8 F 58 17 135/52 98
12/18/23 23:57 12/19/23 02:09 12/19/23 02:09 12/19/23 02:09 12/19/23 02:09
Procedures
Nosebleed
Drug treatment: Neosynephrine
Treatment: local pressure applied and Silver nitrate cautery
Post treatment bleeding: none- good control
*Critical Care Note
Total Time (30-74mins, 75-104mins- exclusive of procedures): Not Applicable
ED Attending Note
-
Portions of this chart may have been created with voice recognition software.� Occasional wrong word or��sound alike� substitutions may have occurred due to the inherent limitations of voice recognition software.
Discharge Plan
Departure
Patient Disposition: Home (Routine Discharge)
Date of Disposition: 12/19/23
Time of Disposition: 01:45
Patient with high blood pressure during this ER visit?: Yes
Discharge Problem:
Acute anterior epistaxis
Instructions: Nosebleeds (DC)
Prescriptions:
No Action
dorzolamide-timolol 1 DROP drops
1 drp BOTH EYES Q12
losartan 50 MG tablet
50 mg PO BID
multivitamin with folic acid [Tab-A-Michael] 1 TABLET tablet
1 tab PO DAILY
Xarelto 20 MG tablet
20 mg PO DAILY Qty: 0 0RF
metformin 1,000 MG tablet
1,000 mg PO BID Qty: 0 0RF
Linzess 290 mcg Capsule
290 mcg PO DAILY
aspirin 81 mg Tablet,Delayed Release (Dr/Ec)
81 mg PO HS
cyclosporine [Restasis] 0.05 % Dropperette
1 drp BOTH EYES Q12H
melatonin 10 mg Tablet
10 mg PO HS
atorvastatin 40 mg Tablet
40 mg PO HS
insulin glargine [Basaglar KwikPen U-100 Insulin] 100 unit/mL (3 mL) Insulin Pen
40 unit SC DAILY
insulin glargine [Basaglar KwikPen U-100 Insulin] 100 unit/mL (3 mL) Insulin Pen
25 unit SC QPM
docusate sodium [Colace] 100 mg Capsule
300 mg PO HS
dofetilide 500 mcg Capsule
500 mcg PO Q12H Qty: 60 11RF
furosemide [Lasix] 40 mg tablet
40 mg PO DAILY Qty: 30 11RF
Referrals:
Maureen Barksdale MD [Family Provider] -
Neftaly Harper MD [Active] - Follow up in 2-3 days
Activity Restrictions/Additional Instructions:
I used Dre-Synephrine soaked cotton which was removed and then I used a silver nitrate cautery stick to cauterize the affected area. Follow-up with ENT. Return here if worse.
Interventions
Interventions:
*Risk Screen - Suicide Last Done: 12/18/23 23:57
*General Assessment Last Done: 12/19/23 01:19
*Neglect/Abuse Screening Last Done: 12/18/23 23:57
ED- Fall Risk Assessment Last Done: 12/19/23 01:19
*ED COVID-19 Vaccine History Last Done: 12/18/23 23:57
*Nursing Disposition Last Done: 12/19/23 02:10
ED-EENT Assessment Last Done: 12/19/23 01:19
Discharge Date and Time
Discharge Date/Time: 12/19/23 02:20
Print Language: PALESTINIAN
[2023-12-19] MEDS: NEO-SYNEPHRINE 0.5% NASAL SPRAY 2 SPRAY NASAL (01:18)
[2023-12-19 01:23] VITALS: BMI 32.4
[2023-12-19 02:09] VITALS: BP 135/52
== END 2023-12-19 02:20 | disposition home or self-care (01) ==
LOC: EMR 23:46
PROVIDERS: EMERGENCY PHYSICIAN Emergency Medicine; FAMILY PHYSICIAN Internal Medicine
DX: R04.0 Epistaxis (principal); Z79.01 Long term (current) use of anticoagulants; I10 Essential (primary) hypertension; E78.5 Hyperlipidemia, unspecified; E11.9 Type 2 diabetes mellitus without complications; Z79.82 Long term (current) use of aspirin; I48.91 Unspecified atrial fibrillation
CPT/HCPCS: 30901; 99282

== ENCOUNTER → 2024-01-04 07:47 | Outpatient (REF) | payer MEDICARE, OTHER, SELFPAY | LOC: RAD 07:47 | PROVIDERS: ATTENDING PHYSICIAN Registered Nurse; FAMILY PHYSICIAN Internal Medicine | DX: I73.9 Peripheral vascular disease, unspecified (principal) | CPT/HCPCS: 93922; 93925 ==

== ENCOUNTER → 2024-02-18 11:09 | Outpatient (REF) | payer MEDICARE, OTHER, SELFPAY ==
[2024-02-18 12:29] LABS: Hematocrit 36.1 % (39.0-52.0); Hemoglobin 12.4 g/dL (13.0-18.0); Mean Corp Hgb Conc. 34.3 g/dL (33.0-37.0); Mean Corpuscular Hgb 32.6 pg (27.0-31.0); Mean Platelet Volume 10.6 fL (7.4-10.4); Platelet Count 167 10^3/uL (130-400); Red Cell Dist. Width 13.5 % (11.5-14.5); White Blood Cell Count 18.5 10^3/uL (4.8-10.8)
[2024-02-18 13:03] LABS: ALT (SGPT) 19 U/L (0-50); AST (SGOT) 26 U/L (17-59); Albumin 4.2 g/dl (3.5-5.0); Alkaline Phosphatase 75 U/L (38-126); Blood Urea Nitrogen 26 mg/dl (9-20); Calcium 9.4 mg/dl (8.4-10.2); Carbon Dioxide 26 mmol/L (22-30); Chloride 103 mmol/L (98-107); Glucose 143 mg/dl (70-99); HDL Cholesterol 39 mg/dl; LDL Cholesterol, Calculated 77 mg/dl; Potassium 4.7 mmol/L (3.5-5.1); Sodium 137 mmol/L (135-145); Total Bilirubin 0.8 mg/dl (0.2-1.3); Total Cholesterol 138 mg/dl (50-199); Total Protein 6.5 g/dl (6.3-8.2); Triglyceride 111 mg/dl (10-149); Very Low Density Lipoprotein 22 mg/dl (0-30); eGFR > 60.00
[2024-02-18 14:02] LABS: Absolute Neutrophils -Man Diff 7.4 10^3/uL (1.4-6.5); Band Neutrophils 0 % (0-3); Segmented Neutrophils 40 % (42-75)
[2024-02-18 14:03] LABS: Anisocytosis Slight; Atypical Lymphocytes 28 %; Eosinophils 2 % (0-6); Hypochromasia 1+; Lymphocytes 23 % (20-51); Monocytes 7 % (2-9); Normal RBC Morphology No; Platelets Checked Yes; Polychromasia Slight
[2024-02-18 14:04] LABS: Stomatocytes 1+; Total Cells Counted 100
[2024-02-18 14:05] LABS: Glycohemoglobin (HgbA1c) 5.8 % (4.0-5.6)
== END ==
LOC: REG 11:09
PROVIDERS: ATTENDING PHYSICIAN Internal Medicine
DX: E78.5 Hyperlipidemia, unspecified (principal); E11.9 Type 2 diabetes mellitus without complications; M86.672 Other chronic osteomyelitis, left ankle and foot; D72.829 Elevated white blood cell count, unspecified
CPT/HCPCS: 36415; 80053; 80061; 83036; 85025

== ENCOUNTER → 2024-05-28 07:12 | Outpatient (REF) | payer MEDICARE, OTHER, SELFPAY ==
[2024-05-28 08:24] LABS: Hematocrit 36.1 % (39.0-52.0); Mean Corp Hgb Conc. 33.2 g/dL (33.0-37.0); Mean Corpuscular Hgb 31.3 pg (27.0-31.0); Mean Corpuscular Volume 94.3 fL (80.0-94.0); Mean Platelet Volume 10.2 fL (7.4-10.4); Platelet Count 135 10^3/uL (130-400); Red Blood Cell Count 3.83 10^6/uL (4.70-6.10); Red Cell Dist. Width 14.1 % (11.5-14.5); White Blood Cell Count 16.5 10^3/uL (4.8-10.8)
[2024-05-28 09:05] LABS: % Basophils 0.4 % (0-2); % Eosinophils 1.1 % (0-6); % Immature Granulocytes 0.4 % (0-0.5); % Lymphocytes 61.4 % (20.5-51.1); % Monocytes 4.6 % (1.7-9.3); % Neutrophils 32.1 % (42.2-75.2); Absolute Basophils 0.1 10^3/uL (0-0.2); Absolute Eosinophils 0.2 10^3/uL (0-0.7); Absolute Immature Granulocytes 0.1 10^3/uL (0-0.05); Absolute Lymphocytes 10.1 10^3/uL (1.2-3.4); Absolute Monocytes 0.8 10^3/uL (0.1-0.6); Absolute Neutrophils 5.3 10^3/uL (1.4-6.5); Nucleated Red Blood Cells % 0 % (-)
== END ==
LOC: REG 07:12
PROVIDERS: ATTENDING PHYSICIAN Internal Medicine
DX: E11.59 Type 2 diabetes mellitus with other circulatory complications (principal)
CPT/HCPCS: 36415; 83036; 85025

== ENCOUNTER → 2024-07-05 14:35 | Outpatient (REF) | payer MEDICARE, OTHER, SELFPAY ==
[2024-07-05 15:29] LABS: Hematocrit 37.3 % (39.0-52.0); Hemoglobin 12.6 g/dL (13.0-18.0); Mean Corp Hgb Conc. 33.8 g/dL (33.0-37.0); Mean Corpuscular Hgb 31.4 pg (27.0-31.0); Mean Platelet Volume 9.8 fL (7.4-10.4); Platelet Count 175 10^3/uL (130-400); Red Blood Cell Count 4.01 10^6/uL (4.70-6.10); Red Cell Dist. Width 13.4 % (11.5-14.5); White Blood Cell Count 15.3 10^3/uL (4.8-10.8)
[2024-07-05 15:58] LABS: Iron 91 ug/dl (49-181)
[2024-07-05 16:07] LABS: Percent Saturation 35 % (20-50); Total Iron Binding Capacity 255 ug/dl (261-462)
[2024-07-05 16:33] LABS: LDH 188 U/L (120-246)
[2024-07-05 16:39] LABS: Ferritin 28.6 ng/ml (17.9-464.0)
[2024-07-05 16:46] LABS: Absolute Neutrophils -Man Diff 5.9 10^3/uL (1.4-6.5); Band Neutrophils 4 % (0-3); Segmented Neutrophils 35 % (42-75)
[2024-07-05 16:47] LABS: Atypical Lymphocytes 10 %; Eosinophils 1 % (0-6); Lymphocytes 47 % (20-51); Monocytes 3 % (2-9); Platelets Checked Yes
[2024-07-05 16:48] LABS: Hypochromasia 1+; Microcytosis 1+; Normal RBC Morphology No; Target Cells Occasional; Total Cells Counted 100
== END ==
LOC: REG 14:35
PROVIDERS: ATTENDING PHYSICIAN Internal Medicine Hematology & Oncology; FAMILY PHYSICIAN Internal Medicine
DX: C91.10 Chronic lymphocytic leukemia of B-cell type not having achieved remission (principal); D51.9 Vitamin B12 deficiency anemia, unspecified
CPT/HCPCS: 36415; 82728; 83540; 83550; 83615; 85025

== ENCOUNTER → 2024-07-12 14:14 | Outpatient (REF) | payer MEDICARE, OTHER, SELFPAY | LOC: DHVS 14:14 | PROVIDERS: ATTENDING PHYSICIAN Registered Nurse | DX: I73.9 Peripheral vascular disease, unspecified (principal) | CPT/HCPCS: 93922; 93925 ==

== ENCOUNTER → 2024-08-24 07:53 | Outpatient (REF) | payer MEDICARE, OTHER, SELFPAY ==
[2024-08-24 08:56] LABS: Hematocrit 38.8 % (39.0-52.0); Mean Corp Hgb Conc. 33.5 g/dL (33.0-37.0); Mean Corpuscular Hgb 31.6 pg (27.0-31.0); Mean Corpuscular Volume 94.4 fL (80.0-94.0); Mean Platelet Volume 9.8 fL (7.4-10.4); Platelet Count 171 10^3/uL (130-400); Red Blood Cell Count 4.11 10^6/uL (4.70-6.10); Red Cell Dist. Width 13.9 % (11.5-14.5); White Blood Cell Count 25.3 10^3/uL (4.8-10.8)
[2024-08-24 09:04] LABS: ALT (SGPT) 21 U/L (0-50); AST (SGOT) 22 U/L (17-59); Albumin 4.1 g/dl (3.5-5.0); Alkaline Phosphatase 100 U/L (38-126); Blood Urea Nitrogen 27 mg/dl (9-20); Calcium 9.6 mg/dl (8.4-10.2); Carbon Dioxide 25 mmol/L (22-30); Chloride 105 mmol/L (98-107); Glucose 167 mg/dl (70-99); HDL Cholesterol 41 mg/dl; LDL Cholesterol, Calculated 105 mg/dl; Potassium 4.6 mmol/L (3.5-5.1); Sodium 139 mmol/L (135-145); Total Bilirubin 0.9 mg/dl (0.2-1.3); Total Cholesterol 166 mg/dl (50-199); Total Protein 6.7 g/dl (6.3-8.2); Triglyceride 100 mg/dl (10-149); Very Low Density Lipoprotein 20 mg/dl (0-30); eGFR > 60.00
[2024-08-24 09:07] LABS: Microalbumin, Random Urine 1.2 mg/dl (0.6-1.7)
[2024-08-24 09:35] LABS: Glycohemoglobin (HgbA1c) 6.2 % (4.0-5.6)
[2024-08-24 09:54] LABS: TSH 1.23 uIU/ml (0.47-4.68)
[2024-08-24 10:06] LABS: % Basophils 0.3 % (0-2); % Eosinophils 0.4 % (0-6); % Immature Granulocytes 0.4 % (0-0.5); % Lymphocytes 61.2 % (20.5-51.1); % Neutrophils 34.7 % (42.2-75.2); Absolute Basophils 0.1 10^3/uL (0-0.2); Absolute Eosinophils 0.1 10^3/uL (0-0.7); Absolute Immature Granulocytes 0.1 10^3/uL (0-0.05); Absolute Lymphocytes 15.5 10^3/uL (1.2-3.4); Absolute Monocytes 0.8 10^3/uL (0.1-0.6); Absolute Neutrophils 8.8 10^3/uL (1.4-6.5); Nucleated Red Blood Cells % 0 % (-)
[2024-08-26 16:28] LABS: PSA Total 0.2 ng/mL (0.0-4.0)
== END ==
LOC: REG 07:53
PROVIDERS: ATTENDING PHYSICIAN Internal Medicine
DX: N40.0 Benign prostatic hyperplasia without lower urinary tract symptoms (principal); R53.83 Other fatigue; E78.5 Hyperlipidemia, unspecified; E10.59 Type 1 diabetes mellitus with other circulatory complications
CPT/HCPCS: 36415; 80053; 80061; 82043; 83036; 84153; 84154; 84443; 85025

== ENCOUNTER → 2024-10-27 08:07 | Outpatient (REF) | payer MEDICARE, OTHER, SELFPAY ==
[2024-10-27 09:50] LABS: Hematocrit 36.6 % (39.0-52.0); Hemoglobin 12.2 g/dL (13.0-18.0); Mean Corp Hgb Conc. 33.3 g/dL (33.0-37.0); Mean Corpuscular Volume 95.6 fL (80.0-94.0); Platelet Count 141 10^3/uL (130-400); Red Cell Dist. Width 14.1 % (11.5-14.5)
[2024-10-27 10:45] LABS: Iron 69 ug/dl (49-181)
[2024-10-27 10:55] LABS: Total Iron Binding Capacity 291 ug/dl (261-462)
[2024-10-27 11:22] LABS: Ferritin 21.0 ng/ml (17.9-464.0)
[2024-10-27 12:50] LABS: Nucleated Red Blood Cells % 0 % (-)
== END ==
LOC: REG 08:07
PROVIDERS: ATTENDING PHYSICIAN Internal Medicine Hematology & Oncology; FAMILY PHYSICIAN Internal Medicine; REFERRING PHYSICIAN Specialist
DX: D50.9 Iron deficiency anemia, unspecified (principal); C91.10 Chronic lymphocytic leukemia of B-cell type not having achieved remission; D51.9 Vitamin B12 deficiency anemia, unspecified; I48.0 Paroxysmal atrial fibrillation
CPT/HCPCS: 36415; 82728; 83540; 83550; 85025

== ENCOUNTER → 2024-11-26 11:12 | Outpatient (REF) | payer MEDICARE, OTHER, SELFPAY ==
[2024-11-26 11:50] LABS: Hematocrit 35.4 % (39.0-52.0); Hemoglobin 11.6 g/dL (13.0-18.0); Mean Corp Hgb Conc. 32.8 g/dL (33.0-37.0); Mean Corpuscular Volume 96.5 fL (80.0-94.0); Nucleated Red Blood Cells % 0 % (-); Platelet Count 146 10^3/uL (130-400); Red Cell Dist. Width 13.5 % (11.5-14.5)
== END ==
LOC: OIDL 11:12
PROVIDERS: ATTENDING PHYSICIAN Internal Medicine Hematology & Oncology
DX: C91.10 Chronic lymphocytic leukemia of B-cell type not having achieved remission (principal); D51.9 Vitamin B12 deficiency anemia, unspecified; D50.9 Iron deficiency anemia, unspecified
CPT/HCPCS: 85025

== ENCOUNTER → 2024-12-03 07:22 | Outpatient (REF) | payer MEDICARE, OTHER, SELFPAY ==
[2024-12-03 08:33] LABS: Hematocrit 35.8 % (39.0-52.0); Hemoglobin 12.0 g/dL (13.0-18.0); Mean Corp Hgb Conc. 33.5 g/dL (33.0-37.0); Mean Corpuscular Volume 94.2 fL (80.0-94.0); Platelet Count 125 10^3/uL (130-400); Red Cell Dist. Width 13.4 % (11.5-14.5)
[2024-12-03 08:59] LABS: Nucleated Red Blood Cells % 0 % (-)
[2024-12-03 09:20] LABS: Glycohemoglobin (HgbA1c) 5.9 % (4.0-5.6)
[2024-12-05 14:29] LABS: tTG IgA Antibody 2.9 EU/ml (0-19); tTG IgG Antibody 2.4 EU/ml (0-19)
== END ==
LOC: REG 07:22
PROVIDERS: ATTENDING PHYSICIAN Internal Medicine
DX: R60.0 Localized edema (principal); E11.3511 Type 2 diabetes mellitus with proliferative diabetic retinopathy with macular edema, right eye; D50.9 Iron deficiency anemia, unspecified; E11.621 Type 2 diabetes mellitus with foot ulcer; D72.829 Elevated white blood cell count, unspecified
CPT/HCPCS: 36415; 82784; 83036; 83516; 83880; 85025; 86231

== ENCOUNTER → 2025-01-09 07:43 | Outpatient (REF) | payer MEDICARE, OTHER, SELFPAY ==
[2025-01-09 10:23] LABS: Hematocrit 36.8 % (39.0-52.0); Hemoglobin 12.2 g/dL (13.0-18.0); Mean Corp Hgb Conc. 33.2 g/dL (33.0-37.0); Mean Corpuscular Volume 95.8 fL (80.0-94.0); Platelet Count 131 10^3/uL (130-400); Red Cell Dist. Width 13.5 % (11.5-14.5)
[2025-01-09 10:48] LABS: Absolute Neutrophils -Man Diff 8.4 10^3/uL (1.4-6.5); Normal RBC Morphology Yes; Platelets Checked Yes; Total Cells Counted 100
[2025-01-09 11:33] LABS: Ferritin 134.0 ng/ml (17.9-464.0)
[2025-01-09 11:55] LABS: Iron 89 ug/dl (49-181)
[2025-01-09 12:04] LABS: Total Iron Binding Capacity 189 ug/dl (261-462)
== END ==
LOC: REG 07:43
PROVIDERS: ATTENDING PHYSICIAN Internal Medicine Hematology & Oncology; FAMILY PHYSICIAN Internal Medicine
DX: C91.10 Chronic lymphocytic leukemia of B-cell type not having achieved remission (principal); D51.9 Vitamin B12 deficiency anemia, unspecified; D50.9 Iron deficiency anemia, unspecified; E11.621 Type 2 diabetes mellitus with foot ulcer
CPT/HCPCS: 36415; 82728; 83540; 83550; 85025

== ENCOUNTER 2025-01-30 06:14 | Day surgery (SDC) | payer MEDICARE, OTHER, SELFPAY ==
[2025-01-30 12:55] LABS: Glucose - Point of Care 85 mg/dl (70-99)
== END 2025-01-30 14:22 | disposition home or self-care (01) ==
LOC: GI 06:14
PROVIDERS: ATTENDING PHYSICIAN Specialist
DX: K29.70 Gastritis, unspecified, without bleeding (principal); K31.89 Other diseases of stomach and duodenum; D50.9 Iron deficiency anemia, unspecified
CPT/HCPCS: 43239; 82962; 88305; 88342

== ENCOUNTER → 2025-02-08 06:56 | Outpatient (REF) | payer MEDICARE, OTHER, SELFPAY | LOC: RAD 06:56 | PROVIDERS: ATTENDING PHYSICIAN Registered Nurse; FAMILY PHYSICIAN Internal Medicine | DX: I73.9 Peripheral vascular disease, unspecified (principal) | CPT/HCPCS: 93922; 93925 ==

== ENCOUNTER → 2025-02-18 14:48 | Outpatient (REF) | payer MEDICARE, OTHER, SELFPAY | LOC: RAD 14:48 | PROVIDERS: ATTENDING PHYSICIAN Specialist; FAMILY PHYSICIAN Internal Medicine | DX: Z18.9 Retained foreign body fragments, unspecified material (principal) | CPT/HCPCS: 74018 ==

== ENCOUNTER → 2025-02-25 14:02 | Outpatient (REF) | payer MEDICARE, OTHER, SELFPAY | LOC: RAD 14:02 | PROVIDERS: ATTENDING PHYSICIAN Specialist; FAMILY PHYSICIAN Internal Medicine | DX: Z18.9 Retained foreign body fragments, unspecified material (principal) | CPT/HCPCS: 74018 ==